=== PATIENT | male | born 1975 | race Caucasian/White ===

== ENCOUNTER 2016-12-21 19:32 | Outpatient (CLI) | payer BC ==
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
== END 2016-12-21 19:33 | disposition home or self-care (01) ==
LOC: NAV ERS 19:32 → NAV RAD 19:33
PROVIDERS: ATTEND Internal Medicine
DX: T14.90 Injury, unspecified (principal)